=== PATIENT | male | born 1945 ===

== ENCOUNTER 2024-03-07 06:49 | Day surgery (SDC) | payer OTHER ==
[2024-03-07] MEDS ORDERED: DIPHENHYDRAMINE HCL 50 MG/ML VIAL 1ML IV ONE (12:00)
[2024-03-07] MEDS ORDERED: fentaNYL CITRATE 50 MCG/ML AMPUL IV ONE (12:00)
[2024-03-07] MEDS ORDERED: MIDAZOLAM HCL 2 MG/2 ML VIAL IV ONE (12:00)
== END 2024-03-07 13:15 | disposition home or self-care (01) ==
LOC: AMB-ENDOS 06:49
PROVIDERS: ATTEND Surgery
DX: D12.2 Benign neoplasm of ascending colon (principal); D12.3 Benign neoplasm of transverse colon; K63.5 Polyp of colon; K57.30 Diverticulosis of large intestine without perforation or abscess without bleeding